=== PATIENT | female | born 1995 | race Caucasian/White ===

== ENCOUNTER 2017-07-26 10:13 | Emergency (ER) | payer MEDICAID ==
[~2017-07-26] VITALS: Ht 154.9 cm; Wt 61.0 kg
[2017-07-26 10:28] VITALS: BP 119/77
== END 2017-07-26 12:02 | disposition left against medical advice (07) ==
LOC: ER 11:52
DX: Z53.21 Procedure and treatment not carried out due to patient leaving prior to being seen by health care provider (principal)

== ENCOUNTER 2020-11-22 10:32 | Observation (INO) | payer MEDICAID ==
[~2020-11-22] VITALS: Ht 154.9 cm; Wt 69.4 kg
[2020-11-22 12:47] LABS: CLARITY URINE CLEAR (CLEAR); COLOR URINE YELLOW (YELLOW); KETONES URINE NEGATIVE (NEGATIVE); LEUKOCYTE ESTERASE URINE 1+ (NEGATIVE); NITRITE URINE NEGATIVE (NEGATIVE); OCCULT BLOOD URINE NEGATIVE (NEGATIVE); PH URINE 6.5 (4.5-8.0); PROTEIN URINE NEGATIVE (NEGATIVE); SPECIFIC GRAVITY URINE 1.007 (1.005-1.030); UROBILINOGEN URINE 0.2 E.U./dL (0.2-1.0)
[2020-11-22] MEDS ORDERED: TERBUTALINE SULFATE 1MG/ML VIAL SUBCUT ONE (13:30)
[2020-11-22] MEDS: LACTATED RINGERS 1,000 ML IV SCH ×2 (13:58→15:58)
[2020-11-22] MEDS ORDERED: TERBUTALINE SULFATE 1MG/ML VIAL SUBCUT NR (16:00)
[2020-11-22] MEDS ORDERED: PREN-134 PO (16:26)
== END 2020-11-22 18:50 | disposition home or self-care (01) ==
LOC: 8 EST LDRP 10:32
PROVIDERS: ADMIT Obstetrics & Gynecology; ATTEND Obstetrics & Gynecology
DX: O26.892 Other specified pregnancy related conditions, second trimester (principal); R10.9 Unspecified abdominal pain; Z3A.26 26 weeks gestation of pregnancy
CPT/HCPCS: 59025; 76805; 76818; 81003; 82731; 96360; 96361; 96372; G0378; J3105; 99281

== ENCOUNTER 2022-07-04 10:12 | Observation (INO) | payer MEDICAID ==
[~2022-07-04] VITALS: Ht 154.9 cm; Wt 68.5 kg
[~2022-07-04 10:12] MED LIST: PREN-134 PO
[2022-07-04] MEDS ORDERED: LACTATED RINGERS 1,000 ML IV ONE (11:00)
[2022-07-04 11:05] LABS: BASOPHILS % 0.3 % (0.0-2.0); EOSINOPHILS % 2.9 % (0.0-5.0); HEMATOCRIT. 31.2 % (36.0-48.0); HEMOGLOBIN. 10.5 g/dL (12.0-16.0); LYMPHOCYTES % 16.8 % (20.0-50.0); MEAN CORPUSCULAR HEMOGLOBIN 29.1 pg (28.0-32.0); MEAN CORPUSCULAR VOLUME 86.6 fL (81.0-99.0); MEAN PLATELET VOLUME 8.4 fl (7.4-10.4); MONOCYTES % 6.2 % (2.0-8.0); NEUTROPHILS % 73.8 % (40.0-76.0); PLATELET 307 x1000/uL (130-400); RED CELL DISTRIBUTION WIDTH 13.1 % (11.6-14.6)
[2022-07-04 11:12] LABS: CHLORIDE 109 mEq/L (98-107)
[2022-07-04] MEDS ORDERED: LACTATED RINGERS 1,000 ML IV SCH (12:30)
== END 2022-07-04 14:30 | disposition home or self-care (01) ==
LOC: 8 EST LDRP 10:12
PROVIDERS: ADMIT Obstetrics & Gynecology; ATTEND Obstetrics & Gynecology
DX: O26.892 Other specified pregnancy related conditions, second trimester (principal); R42 Dizziness and giddiness; R11.0 Nausea; Z3A.26 26 weeks gestation of pregnancy
CPT/HCPCS: 36415; 59025; 80053; 85025; 96360; G0378; 99281

== ENCOUNTER 2022-07-19 10:42 | Observation (INO) | payer MEDICAID ==
[~2022-07-19] VITALS: Ht 154.9 cm; Wt 69.4 kg
== END 2022-07-19 12:10 | disposition home or self-care (01) ==
LOC: 8 EST A/PP 10:42
PROVIDERS: ADMIT Specialist; ATTEND Specialist
DX: O62.9 Abnormality of forces of labor, unspecified (principal); O26.892 Other specified pregnancy related conditions, second trimester; R42 Dizziness and giddiness; H53.8 Other visual disturbances; Z3A.27 27 weeks gestation of pregnancy; Z79.899 Other long term (current) drug therapy
CPT/HCPCS: 59025; G0378; 99281